=== PATIENT | male | born 1965 | race Caucasian/White ===

== ENCOUNTER 2018-03-23 16:11 | Emergency (ER) | payer MEDICARE, OTHER | END 2018-03-23 18:04 | disposition home or self-care (01) | LOC: FTE 16:11 | DX: L25.9 Unspecified contact dermatitis, unspecified cause (principal); E11.9 Type 2 diabetes mellitus without complications; I10 Essential (primary) hypertension; F17.210 Nicotine dependence, cigarettes, uncomplicated | CPT/HCPCS: 99282 ==